=== PATIENT | female | born 1975 | race Caucasian/White ===

== ENCOUNTER 2016-10-18 09:12 | Emergency (ER) | payer OTHER ==
[2016-10-18 09:17] VITALS: BP 113/79; PULSE 64; TEMP 97.5; BMI 24.4
[2016-10-18] MEDS ORDERED: IBUPROFEN 400 MG TABLET (FP) PO ONE (10:18)
[2016-10-18] MEDS: IBUPROFEN 400 MG TABLET (FP) PO ONE (10:19)
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
== END 2016-10-18 11:20 | disposition home or self-care (01) ==
LOC: JERFT 09:12
DX: M79.641 Pain in right hand (principal); W22.09XA Striking against other stationary object, initial encounter; Y93.89 Activity, other specified; Y92.239 Unspecified place in hospital as the place of occurrence of the external cause; Y99.0 Civilian activity done for income or pay; K21.9 Gastro-esophageal reflux disease without esophagitis
CPT/HCPCS: 73130-TC-RT; 84703; 99281-25

== ENCOUNTER 2018-03-12 15:11 | Emergency (ER) | payer OTHER ==
[2018-03-12] MEDS ORDERED: DIPHTH,PERTUSS(ACELL),TET 0.5 ML DISP.SYRIN IM ONE (15:19)
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
[2018-03-12 15:24] VITALS: BP 129/66; PULSE 77; TEMP 98.4; BMI 26.4
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
== END 2018-03-12 15:56 | disposition home or self-care (01) ==
LOC: JERFT 15:11
PROC: 3E0234Z Introduction of Serum, Toxoid and Vaccine into Muscle, Percutaneous Approach (ICD-10-PCS; principal; 2018-03-12)
DX: S41.152A Open bite of left upper arm, initial encounter (principal); W50.3XXA Accidental bite by another person, initial encounter; Y93.F9 Activity, other caregiving; Y92.238 Other place in hospital as the place of occurrence of the external cause; Y99.0 Civilian activity done for income or pay; Z88.1 Allergy status to other antibiotic agents
CPT/HCPCS: 90715; 99281-25

== ENCOUNTER 2018-05-01 11:09 | Emergency (ER) | payer OTHER ==
[2018-05-01 11:18] VITALS: BP 102/56; PULSE 82; TEMP 98.2; BMI 24.7
--- NOTE | 2018-05-01 12:03 | PDOC ---
History of Present Illness - General Chief Complaint: Pain, Acute Stated Complaint: INJURY Time Seen by Provider: 05/01/18 11:41 - History of Present Illness Initial Comments: 05/01/18 12:03 Male without comorbidities presents for evaluation of lower back pain for the last 2 hours. 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 She does have a history of kidney stones and lower back pain she is unsure of what is going on at this point. Past History - Past Medical History Allergies/Adverse Reactions: Allergies Allergy/AdvReac Type Severity Reaction Status Date / Time levofloxacin [From Levaquin] Allergy Unknown Verified 05/01/18 11:12 Home Medications: Ambulatory Orders Cyclobenzaprine HCl [Flexeril 10 mg] 10 mg PO HS PRN #10 tablet 05/01/18 Methylprednisolone [Medrol Dose Robert] 4 mg PO ASDIR #21 tablet 05/01/18 Anemia: No Asthma: No Cancer: No Cardiac Disorders: No CVA: No COPD: No CHF: No Dementia: No Diabetes: No GI Disorders: Yes (gerd) Disorders: No HTN: No Hypercholesterolemia: No Liver Disease: No Seizures: No Thyroid Disease: No - Immunization History Td Vaccination: Yes TDAP Vaccination: No Immunization Up to Date: Yes - Suicide/Smoking/Psychosocial Hx Smoking Status: No Smoking History: Never smoked Years of Tobacco Use: 0 Have you smoked in the past 12 months: No Number of Cigarettes Smoked Daily: 0 Cigars Per Day: 0 Information on smoking cessation initiated: No Hx Alcohol Use: No Drug/Substance Use Hx: No Substance Use Type: None Review of Systems - Review of Systems Constitutional: No: Fever Musculoskeletal: Yes: Back Pain *Physical Exam - Vital Signs Last Vital Signs Temp Pulse Resp BP Pulse Ox 98.2 F 82 18 102/56 L 100 05/01/18 11:12 05/01/18 11:12 05/01/18 11:12 05/01/18 11:12 05/01/18 11:12 - Physical Exam Comments: 05/01/18 12:05 HEAD: NC/AT EYES: Conjuntiva clear Ears: Canals and TM's normal NOSE: No d/c THROAT: Moist mucous membrances, oral pharanx clear, uvula midline NECK: Supple without adenopathy CARDIAC: S1 S2 LUNGS: CTA Full and Equal breath sounds ABDOMEN: Soft NT ND No CVAT MS: Full ROM in all joints without edema NEUROLOGIC: No gross sensory or motor deficits, NVID SKIN: Normal color and temperature no lesions or rashes Lumbar spine skin color and temperature are normal. Range of motion is slightly limited in painful. There is mild right left paralumbar musculature spasm and tenderness. No CVA tenderness. 5 out of 5 strength in bilateral lower extremities without gross sensorimotor deficits negative straight leg raise test. She is neurovascularly intact. Medical Decision Making - Medical Decision Making Given the onset of symptoms over the last 2 hours and the sudden onset of pain is worse to do a CAT scan and evaluate for any obstructive stone. However could be musculoskeletal as well. She did take meloxicam as well as ibuprofen prior to her ER visit I will hold off on Toradol 05/01/18 12:06 *DC/Admit/Observation/Transfer Diagnosis at time of Disposition: Lumbar strain, Lumbar radiculopathy - Discharge Dispostion Disposition: HOME Decision to Admit order: No - Referrals Referrals: Ge Castro MD [Primary Care Provider] - Jimbo Freeman MD [Staff Physician] - - Patient Instructions Printed Discharge Instructions: Lumbar Radiculopathy, DI for Lumbar Radiculopathy Additional Instructions: Return to the emergency room should symptoms worsen or go unresolved. Please take the steroid pack as directed do not take Mobic or any other anti- inflammatory such as Advil Motrin Aleve or ibuprofen while on the Medrol Dosepak. The muscle relaxer I prescribed he will make you sleepy it's one tablet before bedtime. Please follow-up with spine surgery in 2-3 days for further evaluation and treatment options. - Post Discharge Activity
[2018-05-01] MEDS ORDERED: KETOROLAC TROMETHAMINE 60 MG/2 ML VIAL IM ONE (14:00)
[2018-05-01] MEDS ORDERED: KETOROLAC TROMETHAMINE 60 MG/2 ML VIAL ONE (14:04)
[2018-05-01 14:20] LABS: URINE APPEARANCE SLCLOUDY; URINE BILIRUBIN NEGATIVE (<2.0 mg/dL); URINE COLOR YELLOW; URINE GLUCOSE (UA) NEGATIVE (NEGATIVE); URINE KETONE NEGATIVE (NEGATIVE); URINE LEUK ESTERASE NEGATIVE (NEGATIVE); URINE NITRITE NEGATIVE (NEGATIVE); URINE PROTEIN NEGATIVE (NEGATIVE); URINE UROBILINOGEN NEGATIVE mg/dL (0.2-1.0)
== END 2018-05-01 14:40 | disposition home or self-care (01) ==
LOC: JERFT 11:09
PROC: 3E0233Z Introduction of Anti-inflammatory into Muscle, Percutaneous Approach (ICD-10-PCS; principal; 2018-05-01)
DX: S39.012A Strain of muscle, fascia and tendon of lower back, initial encounter (principal); X58.XXXA Exposure to other specified factors, initial encounter; Y93.89 Activity, other specified; Y92.89 Other specified places as the place of occurrence of the external cause; K21.9 Gastro-esophageal reflux disease without esophagitis
CPT/HCPCS: 74176-TC; 81003; 84703; 99281-25

== ENCOUNTER 2018-11-26 17:08 | Observation (INO) | payer OTHER ==
[2018-11-26] MEDS ORDERED: SODIUM CHLORIDE 1,000 ML IV STA (17:28)
[2018-11-26] MEDS ORDERED: ONDANSETRON 4 MG/2 ML VIAL IVPB ONE (17:41)
[2018-11-26] MEDS ORDERED: ACETAMINOPHEN 1000 MG/100 ML VIAL (NON FORMULARY) IVPB ONE (17:41)
[2018-11-26 17:45] LABS: BASO % 0.5 % (0-2.0); EOS % 0.7 % (0-4.5); HEMATOCRIT 35.2 % (32.4-45.2); HEMOGLOBIN 11.4 GM/dL (10.7-15.3); LYMPH % 40.8 % (8-40); MCH 29.7 pg (25.7-33.7); MCHC 32.5 g/dl (32.0-36.0); MEAN CELL VOLUME 91.5 fl (80-96); MEAN PLT VOLUME 9.5 fl (7.5-11.1); MONO % 7.1 % (3.8-10.2); NEUT % 50.9 % (42.8-82.8); PLATELET COUNT 229 K/MM3 (134-434); RBC 3.85 M/mm3 (3.60-5.2); WHITE BLOOD COUNT 11.7 K/mm3 (4.0-10.0)
[2018-11-26] MEDS ORDERED: ACETAMINOPHEN INJECTION 100 ML IVPB ONE (17:46)
[2018-11-26] MEDS ORDERED: ONDANSETRON 4 MG/2 ML VIAL ONE (17:47)
--- NOTE | 2018-11-26 17:47 | PDOC ---
Attending Attestation - Resident Resident Name: Toro Mccormick - ED Attending Attestation I have performed the following: I have examined & evaluated the patient, The case was reviewed & discussed with the resident, I agree w/resident's findings & plan, Exceptions are as noted
--- NOTE | 2018-11-26 17:58 | PDOC ---
Documentation entered by Jovana Richter SCRIBE, acting as scribe for Alexis Garcia MD. Alexis Garcia MD: This documentation has been prepared by the marthaibe, Jovana Richter SCRIBE, under my direction and personally reviewed by me in its entirety. I confirm that the documentation accurately reflects all work, treatment, procedures, and medical decision making performed by me. Attending Attestation - Resident Resident Name: Toro Mccormick - ED Attending Attestation I have performed the following: I have examined & evaluated the patient, The case was reviewed & discussed with the resident, I agree w/resident's findings & plan, Exceptions are as noted - HPI HPI: 11/26/18 17:51 43 F with no PMH presents to ED with syncopal episode. Pt was in wound clinic having ingrown toenail removed when she suddenly felt lightheaded and lost consciousness. Episode was witnessed by Dr. Martin. Pt states that she was seated during the entire episode. DId not hit her head or fall. Pt awoke shortly after but reports persistent nausea and lightheadedness. Pt denies CP/ SOB/palpitations. Denies recent illness, no abdominal pain/N/V/D. States that she has had syncopal episodes in the past. - Physicial Exam PE: 11/26/18 17:56 GENERAL: Awake, alert, and fully oriented, in no acute distress. HEAD: No signs of trauma EYES: PERRLA, EOMI, sclera anicteric, conjunctiva clear ENT: Auricles normal inspection, hearing grossly normal, nares patent, oropharynx clear without exudates. Moist mucosa NECK: Nontender, no stepoffs, Normal ROM, supple, no lymphadenopathy, JVD, or masses LUNGS: Breath sounds equal, clear to auscultation bilaterally. No wheezes, and no crackles HEART: Regular rate and rhythm, normal S1 and S2, no murmurs, rubs or gallops ABDOMEN: Soft, nontender, normoactive bowel sounds. No guarding, no rebound. No masses EXTREMITIES: Normal range of motion, no edema. No clubbing or cyanosis. No cords, erythema, or tenderness NEUROLOGICAL: Cranial nerves II through XII intact. 5/5 strength and sensation in all extremities, Normal speech, normal gait, normal cerebellar function SKIN: Warm, Dry, normal turgor, no rashes or lesions noted. - Medical Decision Making 11/26/18 17:56 43 F with syncopal episode. Suspect vasovagal. Pt with normal vitals in ED. No PE risk factors, PERC score 0. EKG without evidence of arrhythmia. - Labs, trop - UA, UPT - CXR - IVF, zofran, tylenol 11/26/18 18:48 Labs wnl other than Ca 7, K 3.3 EKG wnl Pt reassessed - continues to be very lethargic, more difficult to arouse Pt denies taking any medications, using any drugs Will obtain head CT and send tox panel at this time.
--- NOTE | 2018-11-26 18:11 | PDOC ---
History of Present Illness - General Chief Complaint: Syncope/Near Syncope Stated Complaint: SYNCOPE Time Seen by Provider: 11/26/18 17:11 - History of Present Illness Initial Comments: 11/26/18 17:56 43 yo F with no significant pmh who p/w lightheadedness. Patient was on 5th floor [facility] when she experienced sudden onset of RUE/RLE burning, lightheadedness at rest, and nausea without vomiting. States that she felt weak , and that she might "pass out." Reports similar presentation 15 years ago. States that she was having ingrown nail, removed as outpt. Completed procedure and felt onset of symptoms while sitting. Patient denies NEWMAN, vision change, palpitations, cough, wheezing, orthopena, PND , leg swelling/pain, F,C, CP, SOB, urinary complaints, hematuria, BPR, abdominal pain, diarrhea, constipation, sensory changes. PMHx: as noted above ROS: as noted SHx: Denies Etoh, IVDA, tobacco use Allergies: Levaquin Past History - Past Medical History Allergies/Adverse Reactions: Allergies Allergy/AdvReac Type Severity Reaction Status Date / Time levofloxacin [From Levaquin] Allergy Unknown Verified 11/26/18 17:14 Home Medications: Ambulatory Orders Calcium Carbonate [Calcium] 500 mg PO DAILY 11/19/18 Cholecalciferol (Vitamin D3) [Vitamin D -] 1 tab PO DAILY 11/19/18 Anemia: No Asthma: No Cancer: No Cardiac Disorders: No CVA: No COPD: No CHF: No Dementia: No Diabetes: No GI Disorders: Yes (gerd) Disorders: No HTN: No Hypercholesterolemia: No Liver Disease: No Seizures: No Thyroid Disease: No - Immunization History Td Vaccination: Yes TDAP Vaccination: No Immunization Up to Date: Yes - Suicide/Smoking/Psychosocial Hx Smoking Status: No Smoking History: Never smoked Years of Tobacco Use: 0 Have you smoked in the past 12 months: No Number of Cigarettes Smoked Daily: 0 Cigars Per Day: 0 Hx Alcohol Use: No Drug/Substance Use Hx: No Substance Use Type: None Review of Systems - Review of Systems Comments:: 11/26/18 18:12 GENERAL/CONSTITUTIONAL: No fever or chills. No weakness. HEAD, EYES, EARS, NOSE AND THROAT: No change in vision. No ear pain or discharge. No sore throat. CARDIOVASCULAR: No chest pain or shortness of breath RESPIRATORY: No cough, wheezing, or hemoptysis. GASTROINTESTINAL:+ nausea. No vomiting, diarrhea or constipation. GENITOURINARY: No dysuria, frequency, or change in urination. MUSCULOSKELETAL: No joint or muscle swelling or pain. No neck or back pain. SKIN: No rash NEUROLOGIC: + lightheadedness. No headache, vertigo, loss of consciousness, or change in strength. ENDOCRINE: No increased thirst. No abnormal weight change HEMATOLOGIC/LYMPHATIC: No anemia, easy bleeding, or history of blood clots. ALLERGIC/IMMUNOLOGIC: No hives or skin allergy. *Physical Exam - Vital Signs Last Vital Signs Temp Pulse Resp BP Pulse Ox 97.7 F 80 18 121/61 100 11/26/18 17:10 11/26/18 17:10 11/26/18 17:10 11/26/18 17:10 11/26/18 17:10 - Physical Exam Comments: 11/26/18 18:14 GENERAL: Awake, alert, and fully oriented, in no acute distress HEAD: No signs of trauma, normocephalic, atraumatic EYES: PERRLA, EOMI, sclera anicteric, conjunctiva clear ENT: Auricles normal inspection, hearing grossly normal, nares patent, oropharynx clear without exudates. Moist mucosa NECK: Normal ROM, supple, no lymphadenopathy, JVD, or masses LUNGS: No distress, speaks full sentences, clear to auscultation bilaterally HEART: Regular rate and rhythm, normal S1 and S2, no murmurs, rubs or gallops, peripheral pulses normal and equal bilaterally. ABDOMEN: Soft, nontender, normoactive bowel sounds. No guarding, no rebound. No masses EXTREMITIES : Normal inspection, Normal range of motion, no edema. No clubbing or cyanosis. NEUROLOGICAL: Cranial nerves II through XII grossly intact. Normal speech, no focal sensorimotor deficits SKIN: Warm, Dry, normal turgor, no rashes or lesions noted ED Treatment Course - LABORATORY CBC & Chemistry Diagram: 11/26/18 17:00 11/26/18 17:00 - ADDITIONAL ORDERS Additional order review: 11/26/18 17:00 RBC 3.85 MCV 91.5 MCHC 32.5 RDW 14.0 MPV 9.5 Neutrophils % 50.9 D Lymphocytes % 40.8 H D Monocytes % 7.1 Eosinophils % 0.7 Basophils % 0.5 - Medications Given in the ED: ED Medications Discontinued Medications Generic Name Dose Route Start Last Admin Trade Name Keesha PRN Reason Stop Dose Admin Acetaminophen 1,000 mg 11/26/18 17:41 11/26/18 17:52 Ofirmev Injection - IVPB 11/26/18 17:42 1,000 mg ONCE ONE Administration Ondansetron HCl 4 mg 11/26/18 17:41 11/26/18 17:52 Zofran Injection IVPB 11/26/18 17:42 4 mg ONCE ONE Administration Medical Decision Making - Medical Decision Making 11/26/18 18:11 43 yo F with no significant pmh who p/w lightheadedness, nausea, following ingrown tail removal in [facility] ED. Vitals wnl, AF, A&Ox3. Patient initially pale appearing, lethargic appearing, but mental status improved, following NS, and oxygen. Physical exam otherwise unremarkable. Likely vasovagal syncope. Will assess for cardiac dysarrythmias, hypoglycemia, electrolyte abnml, metabolic and toxic derangements, acid-base disturbances, infection. Will reassess. ED course: 11/26/18 18:16 Laboratory Tests 11/26/18 11/26/18 17:00 17:00 WBC 11.7 H Hgb 11.4 Hct 35.2 D Plt Count 229 Potassium 3.3 L 11/26/18 18:25 EKG: NSR with absent MERLINE, STD. Nml interval duration and axis. Nml R wave progression. Absent Q waves. 11/26/18 18:50 CXR: Unremarkable Patient pending CTH Endorsed to night team, Dr. Nur. *DC/Admit/Observation/Transfer Diagnosis at time of Disposition: Pre-syncope - Discharge Dispostion Condition at time of disposition: Stable - Referrals Referrals: Ge Castro MD [Primary Care Provider] - - Patient Instructions Printed Discharge Instructions: DI for Syncope in Adults (Fainting) Additional Instructions: Please return to the emergency department with any new or worsening symptoms or concerns. Please follow up with your primary care physician within 72 hours. - Post Discharge Activity
[2018-11-26 18:15] LABS: ALBUMIN 3.5 g/dl (3.4-5.0); ALK PHOS 68 U/L (45-117); ANION GAP 7 MMOL/L (8-16); BILIRUBIN,TOTAL 0.6 mg/dL (0.2-1); BLOOD UREA NITROGEN 10.5 mg/dL (7-18); CALCIUM 7.7 mg/dL (8.5-10.1); CHLORIDE 110 mmol/L (98-107); CO2 21 mmol/L (21-32); CREATININE 0.6 mg/dL (0.55-1.3); GLUCOSE,RANDOM 107 mg/dL (74-106); POTASSIUM 3.3 mmol/L (3.5-5.1); SGOT/AST 16 U/L (15-37); SGPT/ALT 21 U/L (13-61); SODIUM 138 mmol/L (136-145); TOT PROT 6.4 g/dl (6.4-8.2)
[2018-11-26] MEDS ORDERED: POTASSIUM CHLORIDE TABS 20 MEQ TABLET.ER (FP) PO ONE ×4 (18:15→19:28)
[2018-11-26] MEDS ORDERED: CALCIUM GLUCONATE 10% - 1,000 MG/10 ML VIAL IVPB ONE (18:59)
--- NOTE | 2018-11-26 19:10 | PDOC ---
*Physical Exam - Vital Signs Last Vital Signs Temp Pulse Resp BP Pulse Ox 98.0 F 71 18 123/78 97 11/26/18 18:40 11/26/18 18:40 11/26/18 18:40 11/26/18 18:40 11/26/18 18:40 ED Treatment Course - LABORATORY CBC & Chemistry Diagram: 11/28/18 07:35 11/28/18 07:35 - ADDITIONAL ORDERS Additional order review: Laboratory Results 11/26/18 17:00 Sodium 138 Potassium 3.3 L Chloride 110 H Carbon Dioxide 21 Anion Gap 7 L BUN 10.5 Creatinine 0.6 Est GFR (CKD-EPI)AfAm 127.58 Est GFR (CKD-EPI)NonAf 110.08 Random Glucose 107 H Calcium 7.7 L Total Bilirubin 0.6 AST 16 ALT 21 Alkaline Phosphatase 68 Troponin I < 0.02 Total Protein 6.4 Albumin 3.5 TSH 0.75 11/26/18 17:00 RBC 3.85 MCV 91.5 MCHC 32.5 RDW 14.0 MPV 9.5 Neutrophils % 50.9 D Lymphocytes % 40.8 H D Monocytes % 7.1 Eosinophils % 0.7 Basophils % 0.5 - Medications Given in the ED: ED Medications Discontinued Medications Generic Name Dose Route Start Last Admin Trade Name Freq PRN Reason Stop Dose Admin Acetaminophen 1,000 mg 11/26/18 17:41 11/26/18 17:52 Ofirmev Injection - IVPB 11/26/18 17:42 1,000 mg ONCE ONE Administration Sodium Chloride 1,000 mls @ 1,000 mls/hr 11/26/18 17:28 11/26/18 17:29 Normal Saline - IV 11/26/18 18:27 1,000 mls/hr ASDIR STA Administration Ondansetron HCl 4 mg 11/26/18 17:41 11/26/18 17:52 Zofran Injection IVPB 11/26/18 17:42 4 mg ONCE ONE Administration Potassium Chloride 40 meq 11/26/18 18:15 11/26/18 18:36 K-Dur - PO 11/26/18 18:16 40 meq ONCE ONE Administration Medical Decision Making - Medical Decision Making 11/26/18 19:09 Patient signed out by Dr. Mccormick (Resident) and Dr. Garcia (Attending) @ [id number] 43 year old female s/p pre-syncopal event while having an ingrown toenail removed on the 5th floor. CBC unremarkable, Hypokalemic (s/p PO replacement) EKG non-ichemic Awaiting Head CT 11/26/18 19:10 Patient reassessed @ bedside VSS Drowsy, but arousable C/o of tiredness, no other active medical complaints including no chest pain, shortness of breath, headache 11/26/18 20:[address] shows no mass/bleed/ischemia 11/26/18 20:18 Patient reassessed @ bedside, remains drowsy but arousable. Family @ bedside notes this is not her baseline. At this time I have concern that patient may have repeat pre-syncopal, even syncopal episode if discharged home. Will admit for further observation and any necessary cardiac evaluation. 11/26/18 21:14 Case d/w SHANK TAPER Beverley Rodriguez - will admit OBS Tele Patient and family @ bedside counseled on plan of care *DC/Admit/Observation/Transfer Diagnosis at time of Disposition: Pre-syncope - Discharge Dispostion Disposition: HOME Condition at time of disposition: Improved - Referrals - Patient Instructions - Post Discharge Activity
[2018-11-26] MEDS ORDERED: CALCIUM GLUCONATE 10% - 1,000 MG/10 ML VIAL ONE (19:28)
--- NOTE | 2018-11-26 21:42 | HP ---
Admitting History and Physical - Primary Care Physician PCP: Ge Castro - Admission Chief Complaint: Lightheadedness and Numbness History of Present Illness: This is a 43 y/o woman with a past medical history GERD. Who presents to the ED for lightheadedness and numbness/burning to L- leg to abdomen after having an ingrown nail procedure today. Patient reports fasting for 8 hrs secondary to podiatry procedure. Patient reports increased dizziness with movement. Patient reports being admitted and worked up for Vertigo and Seizure- Like Activity- neg. Patient denies blurred vision, NEWMAN. Patient denies fever, chills, cough, SOB , CP, palpitations, vomiting, diarrhea, constipation, dysuria. History Source: Patient Limitations to Obtaining History: No Limitations - Past Medical History Gastrointestinal: Yes: GERD, Peptic Ulcer Disease ...LMP: 07/18/13 - Past Surgical History Additional Past Surgical History: Cyst removed from L- Breast - Smoking History Smoking history: Never smoked Have you smoked in the past 12 months: No Aproximately how many cigarettes per day: 0 - Alcohol/Substance Use Hx Alcohol Use: No - Social History History of Recent Travel: No Home Medications - Allergies Allergies/Adverse Reactions: Allergies Allergy/AdvReac Type Severity Reaction Status Date / Time levofloxacin [From Levaquin] Allergy Unknown Verified 11/26/18 17:14 - Home Medications Home Medications: Ambulatory Orders Calcium Carbonate [Calcium] 500 mg PO DAILY 11/19/18 Cholecalciferol (Vitamin D3) [Vitamin D -] 1 tab PO DAILY 11/19/18 Family Disease History - Family Disease History Family Disease History: CA: Father (liver ca 60) Review of Systems - Review of Systems Constitutional: reports: No Symptoms Eyes: reports: No Symptoms HENT: reports: No Symptoms Neck: reports: No Symptoms Cardiovascular: reports: No Symptoms Respiratory: reports: No Symptoms Gastrointestinal: reports: No Symptoms Genitourinary: reports: No Symptoms Breasts: reports: No Symptoms Reported Musculoskeletal: reports: No Symptoms Integumentary: reports: No Symptoms Neurological: reports: Dizziness, Numbness Endocrine: reports: No Symptoms Hematology/Lymphatic: reports: No Symptoms Psychiatric: reports: No Symptoms Physical Examination Vital Signs: Vital Signs Temperature 98.0 F 11/26/18 18:40 Pulse Rate 71 11/26/18 18:40 Respiratory Rate 18 11/26/18 18:40 Blood Pressure 123/78 11/26/18 18:40 O2 Sat by Pulse Oximetry (%) 97 11/26/18 18:40 Constitutional: Yes: Well Nourished, No Distress, Calm, Pallor Eyes: Yes: WNL, Conjunctiva Clear, EOM Intact, PERRL HENT: Yes: WNL, Atraumatic, Normocephalic Neck: Yes: WNL, Supple, Trachea Midline Cardiovascular: Yes: WNL, Regular Rate and Rhythm, S1, S2 Respiratory: Yes: WNL, Regular, CTA Bilaterally Gastrointestinal: Yes: WNL, Normal Bowel Sounds, Soft Breast(s): Yes: WNL Musculoskeletal: Yes: WNL Extremities: Yes: WNL Edema: No Peripheral Pulses WNL: Yes Wound/Incision: Yes: Dressing Dry and Intact Neurological: Yes: WNL, Alert, Oriented, Cran Nerves II-XII Intact ...Motor Strength: WNL Psychiatric: Yes: WNL, Alert, Oriented Labs: CBC, BMP 11/26/18 17:00 11/26/18 17:00 Laboratory Results - last 24 hr 11/26/18 11/26/18 17:00 17:00 WBC 11.7 H RBC 3.85 Hgb 11.4 Hct 35.2 D MCV 91.5 MCH 29.7 MCHC 32.5 RDW 14.0 Plt Count 229 MPV 9.5 Absolute Neuts (auto) 6.0 Neutrophils % 50.9 D Lymphocytes % 40.8 H D Monocytes % 7.1 Eosinophils % 0.7 Basophils % 0.5 Nucleated RBC % 0 Sodium 138 Potassium 3.3 L Chloride 110 H Carbon Dioxide 21 Anion Gap 7 L BUN 10.5 Creatinine 0.6 Est GFR (CKD-EPI)AfAm 127.58 Est GFR (CKD-EPI)NonAf 110.08 Random Glucose 107 H Calcium 7.7 L Total Bilirubin 0.6 AST 16 ALT 21 Alkaline Phosphatase 68 Troponin I < 0.02 Total Protein 6.4 Albumin 3.5 TSH 0.75 Intake & Output 11/23/18 11/24/18 11/25/18 11/26/18 23:59 23:59 23:59 23:59 Weight 68.039 kg Imaging - Results Chest X-ray: Report Reviewed, Image Reviewed Cat Scan: Report Reviewed, Image Reviewed EKG: Image Reviewed Problem List - Problems (1) Pre-syncope Assessment/Plan: Likely secondary to Dehydration vs Arrhythmia Cardiac monitoring Serial Enzymes Appreciate Cardiology consult ECHO in am Carotid Doppler r/o stenosis Holter 2012 for Vertigo- neg EEG 2013 for Seizure like activity- no recorded seizures Brain MRI 2012 for NEWMAN and Dizziness- no acute intracranial pathology Orthostatics Monitor CBC, BMP Fall Precautions Code(s): R55 - SYNCOPE AND COLLAPSE (2) Lightheaded Assessment/Plan: See above Code(s): R42 - DIZZINESS AND GIDDINESS (3) Hypocalcemia Assessment/Plan: Continue Calcium Code(s): E83.51 - HYPOCALCEMIA (4) GERD (gastroesophageal reflux disease) Assessment/Plan: Stable Pepcid Code(s): K21.9 - GASTRO-ESOPHAGEAL REFLUX DISEASE WITHOUT ESOPHAGITIS Assessment/Plan This is a 43 y/o woman with a PMHx of GERD. Placed in Telemetry Observation for Near Syncope for further evaluation of their emergent condition. Plan: See Problem List FEN PO Fluids as Tolerated Replete lytes prn Regular Diet DVT ppx OOB SCDs Dispo: Observation Visit type - Emergency Visit Emergency Visit: Yes ED Registration Date: 11/26/18 Care time: The patient presented to the Emergency Department on the above date and was hospitalized for further evaluation of their emergent condition. - New Patient This patient is new to me today: Yes Date on this admission: 11/26/18 - Critical Care Critical Care patient: No
[2018-11-26 22:54] LABS: URINE APPEARANCE CLEAR; URINE BILIRUBIN NEGATIVE (NEGATIVE); URINE COLOR YELLOW; URINE GLUCOSE (UA) NEGATIVE (NEGATIVE); URINE KETONE NEGATIVE (NEGATIVE); URINE LEUK ESTERASE NEGATIVE (NEGATIVE); URINE NITRITE NEGATIVE (NEGATIVE); URINE PROTEIN NEGATIVE (NEGATIVE); URINE UROBILINOGEN 0.2 mg/dL (0.2-1.0)
[2018-11-26 23:13] LABS: METHADONE, UR NEGATIVE ng/ml (CUTOFF=300); PHENCYCLIDINE,URINE NEGATIVE ng/ml (CUTOFF=25); URINE BARBITURATES NEGATIVE ng/ml (CUTOFF=200); URINE BENZODIAZEPINES NEGATIVE ng/ml (CUTOFF=200)
[2018-11-26 23:14] LABS: COCAINE, UR NEGATIVE ng/ml (CUTOFF=300); OPIATES, URI NEGATIVE ng/ml (CUTOFF=300); URINE AMPHETAMINES NEGATIVE ng/ml (CUTOFF=500)
[2018-11-27] MEDS ORDERED: FAMOTIDINE 20 MG/50 ML IVPB 20 MG/50 ML MG IVPB ONE ×2 (01:24→01:41)
[2018-11-27] MEDS ORDERED: ACETAMINOPHEN 325 MG TABLET (FP) ONE (01:40)
[2018-11-27] MEDS: ACETAMINOPHEN 325 MG TABLET (FP) PO PRN ×3 (01:45→22:13)
[2018-11-27 04:39] VITALS: BMI 27.8
--- NOTE | 2018-11-27 08:51 | EKG ---
Test Reason : Blood Pressure : / mmHG Vent. Rate : 069 BPM Atrial Rate : 069 BPM P-R Int : 154 ms QRS Dur : 086 ms QT Int : 416 ms P-R-T Axes : 061 073 029 degrees QTc Int : 445 ms NORMAL SINUS RHYTHM NORMAL ECG WHEN COMPARED WITH ECG OF 01-AUG-2014 11:02, NO SIGNIFICANT CHANGE WAS FOUND Confirmed by ELVIRA KC MD ([id number]) on 11/27/2018 8:50:42 AM Referred By: Confirmed By:ELVIRA KC MD
[2018-11-27] MEDS: CALCIUM (OYSTER SHELL) 500 MG TABLET (FP) PO SCH (10:28)
[2018-11-27] MEDS: CHOLECALCIFEROL (VIT D3) 400 UNIT (10 MCG) TABLET PO SCH (10:28)
[2018-11-27 10:56] LABS: BASO % 0.3 % (0-2.0); EOS % 0.2 % (0-4.5); HEMATOCRIT 37.1 % (32.4-45.2); HEMOGLOBIN 12.1 GM/dL (10.7-15.3); LYMPH % 23.1 % (8-40); MCH 29.2 pg (25.7-33.7); MCHC 32.6 g/dl (32.0-36.0); MEAN CELL VOLUME 89.6 fl (80-96); MEAN PLT VOLUME 9.4 fl (7.5-11.1); MONO % 6.6 % (3.8-10.2); NEUT % 69.8 % (42.8-82.8); PLATELET COUNT 227 K/MM3 (134-434); RBC 4.14 M/mm3 (3.60-5.2); RDW 14.1 % (11.6-15.6); WHITE BLOOD COUNT 8.2 K/mm3 (4.0-10.0)
[2018-11-27 11:35] LABS: ANION GAP 6 MMOL/L (8-16); BLOOD UREA NITROGEN 10.2 mg/dL (7-18); CALCIUM 8.5 mg/dL (8.5-10.1); CHLORIDE 112 mmol/L (98-107); CO2 24 mmol/L (21-32); CREATININE 0.7 mg/dL (0.55-1.3); GLUCOSE,RANDOM 105 mg/dL (74-106); MAGNESIUM 2.3 mg/dL (1.8-2.4); POTASSIUM 3.8 mmol/L (3.5-5.1); SODIUM 142 mmol/L (136-145)
[2018-11-27] MEDS: SODIUM CHLORIDE 1,000 ML IV SCH (14:13)
--- NOTE | 2018-11-27 14:36 | ECHO ---
Name: DOLLY PASCUAL Exam:Adult Echocardiogram Study Date: 11/27/2018 09:11 AM Age: 43 yrs Reason For Study: SYNCOPE Height: 62 in Weight: 150 lb BSA: 1.7 m2 MMode/2D Measurements & Calculations IVSd: 0.58 cm Ao root diam: 2.1 cm LVIDd: 4.4 cm LA dimension: 3.2 cm LVIDs: 2.9 cm LVPWd: 0.49 cm EDV(Teich): 88.2 ml LVOT diam: 1.9 cm ESV(Teich): 31.0 ml Doppler Measurements & Calculations MV E max reilly: 94.3 cm/sec Ao V2 max: 169.9 cm/sec MV A max reilly: 63.2 cm/sec Ao max P.5 mmHg MV E/A: 1.5 Ao V2 mean: 116.7 cm/sec MV dec time: 0.21 sec Ao mean P.2 mmHg Ao V2 VTI: 34.1 cm DELVIS(I,D): 1.7 cm2 DELVIS(V,D): 1.6 cm2 LV V1 max P.9 mmHg SV(LVOT): 57.8 ml LV V1 mean P.1 mmHg LV V1 max: 98.7 cm/sec LV V1 mean: 67.4 cm/sec LV V1 VTI: 21.1 cm TR max reilly: 198.2 cm/sec Med Peak E' Reilly: 13.4 cm/sec TR max P.7 mmHg Med E/e': 7.0 Lat Peak E' Reilly: 13.4 cm/sec Lat E/e': 7.0 Procedure A two-dimensional transthoracic echocardiogram with color flow and Doppler was performed. Left Ventricle The left ventricular size, thickness and function are normal. The left ventricular ejection fraction is normal. Left Ventricular Filling pattern is normal for age. The left ventricular wall motion is kenzie l. Right Ventricle The right ventricle is normal in size and function. Atria Normal left and right atrial size and function. The atrial septum is aneurysmal. Mitral Valve The mitral valve is grossly normal. There is no mitral valve stenosis. There is trace mitral regurgit ation. Tricuspid Valve The tricuspid valve is normal in structure and function. There is no tricuspid stenosis. There is Tra ce to mild tricuspid regurgitation. Right ventricular systolic pressure is normal. Aortic Valve The aortic valve is not well visualized. No hemodynamically significant valvular aortic stenosis. No aortic regurgitation is present. Pulmonic Valve The pulmonic valve is not well visualized. Great Vessels The aortic root is normal size. Pericardium/Pleura There is no pericardial effusion. Interpretation Summary The left ventricular size, thickness and function are normal The left ventricular ejection fraction is normal. The left ventricular wall motion is normal. Left Ventricular Filling pattern is normal for age. There is trace mitral regurgitation. There is Trace to mild tricuspid regurgitation. Right ventricular systolic pressure is normal. The atrial septum is aneurysmal. MD Jacky Murphy 11/27/2018 02:36 PM
--- NOTE | 2018-11-27 15:36 | PN ---
Progress Note, Physician Chief Complaint: Pre-syncope Palpitations Hypocalcemia History of Present Illness: Previous notes and events reviewed awake and alert NAD continue to have ightheadedness denies chest pain or SOB - Current Medication List Current Medications: Active Medications Acetaminophen (Tylenol -) 650 mg PO Q6H PRN PRN Reason: PAIN LEVEL 6-10 Last Admin: 11/27/18 10:28 Dose: 650 mg Calcium Carbonate (Os-Lakhwinder 500mg -) 500 mg PO DAILY [facility] Last Admin: 11/27/18 10:28 Dose: 500 mg Cholecalciferol (Vitamin D3 -) 400 unit PO DAILY [facility] Last Admin: 11/27/18 10:28 Dose: 400 unit Sodium Chloride (Normal Saline -) 1,000 mls @ 75 mls/hr IV ASDIR [facility] Last Admin: 11/27/18 14:13 Dose: 75 mls/hr Famotidine/Sodium Chloride (Pepcid 20 Mg Premixed Ivpb -) 20 mg in 50 mls @ 100 mls/hr IVPB BID [facility] - Objective Vital Signs: Vital Signs Temperature 98.4 F 11/27/18 13:00 Pulse Rate 78 11/27/18 13:00 Respiratory Rate 18 11/27/18 13:00 Blood Pressure 104/63 11/27/18 13:00 O2 Sat by Pulse Oximetry (%) 98 11/27/18 09:00 Constitutional: Yes: No Distress, Calm Eyes: Yes: Conjunctiva Clear HENT: Yes: Atraumatic Cardiovascular: Yes: Regular Rate and Rhythm Respiratory: Yes: Regular, CTA Bilaterally Gastrointestinal: Yes: Normal Bowel Sounds, Soft Musculoskeletal: Yes: Muscle Weakness Extremities: Yes: WNL Edema: No Wound/Incision: Yes: Dressing Dry and Intact Neurological: Yes: Alert, Oriented Psychiatric: Yes: Alert, Oriented Labs: CBC, BMP 11/27/18 10:25 11/27/18 10:25 Problem List - Problems (1) GERD (gastroesophageal reflux disease) Assessment/Plan: -Famotidine Code(s): K21.9 - GASTRO-ESOPHAGEAL REFLUX DISEASE WITHOUT ESOPHAGITIS (2) Palpitations Assessment/Plan: -tele monitoring -cardiology consult -Echo with normal EF Code(s): R00.2 - PALPITATIONS (3) Pre-syncope Assessment/Plan: -Cardiology on board -Carotid US done -tele monitoring -Orthostatics -IV hydration -fall precaution Code(s): R55 - SYNCOPE AND COLLAPSE (4) Hypocalcemia Assessment/Plan: -Calcium daily Code(s): E83.51 - HYPOCALCEMIA (5) Lightheaded Assessment/Plan: -Cardiology on board -Carotid US done -tele monitoring -Orthostatics -IV hydration -fall precaution Code(s): R42 - DIZZINESS AND GIDDINESS
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
[2018-11-27] MEDS: FAMOTIDINE 20 MG/50 ML IVPB 20 MG/50 ML MG IVPB SCH ×2 (22:14→22:16)
[2018-11-28] MEDS: ACETAMINOPHEN 325 MG TABLET (FP) PO PRN (08:25)
[2018-11-28 08:54] LABS: HEMATOCRIT 37.7 % (32.4-45.2); HEMOGLOBIN 12.7 GM/dL (10.7-15.3); MCH 29.9 pg (25.7-33.7); MCHC 33.7 g/dl (32.0-36.0); MEAN CELL VOLUME 88.7 fl (80-96); MEAN PLT VOLUME 9.8 fl (7.5-11.1); RBC 4.25 M/mm3 (3.60-5.2); RDW 14.7 % (11.6-15.6); WHITE BLOOD COUNT 6.8 K/mm3 (4.0-10.0)
[2018-11-28 08:55] LABS: ALBUMIN 3.6 g/dl (3.4-5.0); BILIRUBIN,TOTAL 0.5 mg/dL (0.2-1); BLOOD UREA NITROGEN 10.2 mg/dL (7-18); CALCIUM 8.7 mg/dL (8.5-10.1); CREATININE 0.6 mg/dL (0.55-1.3); POTASSIUM 4.5 mmol/L (3.5-5.1); TOT PROT 6.9 g/dl (6.4-8.2)
[2018-11-28 09:06] LABS: PLATELET COUNT 241 K/MM3 (134-434)
[2018-11-28] MEDS: SODIUM CHLORIDE 1,000 ML IV SCH (09:45)
[2018-11-28] MEDS: CALCIUM (OYSTER SHELL) 500 MG TABLET (FP) PO SCH (09:45)
[2018-11-28] MEDS: CHOLECALCIFEROL (VIT D3) 400 UNIT (10 MCG) TABLET PO SCH (09:45)
[2018-11-28] MEDS: FAMOTIDINE 20 MG/50 ML IVPB 20 MG/50 ML MG IVPB SCH (09:45)
--- NOTE | 2018-11-28 10:51 | PN ---
Progress Note, Physician Chief Complaint: Pt A&OX3; anxious. - Current Medication List Current Medications: Active Medications Acetaminophen (Tylenol -) 650 mg PO Q6H PRN PRN Reason: PAIN LEVEL 6-10 Last Admin: 11/28/18 08:25 Dose: 650 mg Calcium Carbonate (Os-Lakhwinder 500mg -) 500 mg PO DAILY [facility] Last Admin: 11/28/18 09:45 Dose: 500 mg Cholecalciferol (Vitamin D3 -) 400 unit PO DAILY [facility] Last Admin: 11/28/18 09:45 Dose: 400 unit Sodium Chloride (Normal Saline -) 1,000 mls @ 75 mls/hr IV ASDIR [facility] Last Admin: 11/28/18 09:45 Dose: Not Given Famotidine/Sodium Chloride (Pepcid 20 Mg Premixed Ivpb -) 20 mg in 50 mls @ 100 mls/hr IVPB BID [facility] Last Admin: 11/28/18 09:45 Dose: 100 mls/hr - Objective Vital Signs: Vital Signs Temperature 98.2 F 11/28/18 10:00 Pulse Rate 79 11/28/18 10:00 Respiratory Rate 20 11/28/18 10:00 Blood Pressure 103/61 11/28/18 10:00 O2 Sat by Pulse Oximetry (%) 100 11/28/18 09:00 Labs: CBC, BMP 11/28/18 07:35 11/28/18 07:35 Problem List - Problems (1) Syncope Assessment/Plan: Likely vagal from burning pain extending from site of toe surgery to the abdominal area (EKG, telemetry, and ECHO WNL; TNI < 0.02;) Atypical chest pain (tender sternal area and around left breast: likely from probe-pressure when doing ECHO). No hx HTN, DM, lipiss; no famiily hx CAD; no cigarettes; normal menses. Physically active job; no hx exertional chest discomfort or COONEY. From a cardiac standpoint, pt may be followed as outpatient. Code(s): R55 - SYNCOPE AND COLLAPSE (2) Anxiety Code(s): F41.9 - ANXIETY DISORDER, UNSPECIFIED (3) GERD (gastroesophageal reflux disease) Code(s): K21.9 - GASTRO-ESOPHAGEAL REFLUX DISEASE WITHOUT ESOPHAGITIS
--- NOTE | 2018-11-28 14:01 | EKG ---
Test Reason : Blood Pressure : / mmHG Vent. Rate : 072 BPM Atrial Rate : 072 BPM P-R Int : 130 ms QRS Dur : 078 ms QT Int : 370 ms P-R-T Axes : 016 042 023 degrees QTc Int : 405 ms NORMAL SINUS RHYTHM NORMAL ECG WHEN COMPARED WITH ECG OF 26-NOV-2018 17:22, NO SIGNIFICANT CHANGE WAS FOUND Confirmed by NASIR SPARKS MD ([id number]) on 11/28/2018 2:01:04 PM Referred By: WILTON WONG DRANABELL Confirmed By:NASIR SPARKS MD
--- NOTE | 2018-11-28 15:06 | DS ---
Physical Examination Vital Signs: Vital Signs Temperature 98.2 F 11/28/18 10:00 Pulse Rate 79 11/28/18 10:00 Respiratory Rate 20 11/28/18 10:00 Blood Pressure 103/61 11/28/18 10:00 O2 Sat by Pulse Oximetry (%) 100 11/28/18 09:00 Constitutional: Yes: Calm Cardiovascular: Yes: Regular Rate and Rhythm, S1, S2 Respiratory: Yes: CTA Bilaterally Gastrointestinal: Yes: Normal Bowel Sounds, Soft Extremities: Yes: Other (left great toe swelling dressin opened) Labs: CBC, BMP 11/28/18 07:35 11/28/18 07:35 Discharge Summary Reason For Visit: LIGHTHEADNESS/PRE-SYNCOPE Current Active Problems Anxiety (Acute) GERD (gastroesophageal reflux disease) (Acute) Hypocalcemia (Acute) Palpitations (Acute) Pre-syncope (Acute) Syncope (Acute) Other Procedures: echo left and right ventricle ejection fraction normal. carotid doppler normal Hospital Course: Primary Care Physician PCP: Ge Castro - Admission Chief Complaint: Lightheadedness and Numbness History of Present Illness: This is a 43 y/o woman with a past medical history GERD. Who presents to the ED for lightheadedness and numbness/burning to L- leg to abdomen after having an ingrown nail procedure today. Patient reports fasting for 8 hrs secondary to podiatry procedure. Patient reports increased dizziness with movement. Patient reports being admitted and worked up for Vertigo and Seizure- Like Activity- neg. Patient denies blurred vision, NEWMAN. Patient denies fever, chills, cough, SOB , CP, palpitations, vomiting, diarrhea, constipation, dysuria. Condition: Improved - Instructions Diet, Activity, Other Instructions: follow up with Dr alejandra kessler in 1 week at [facility] care center Referrals: Tavon Martin MD [Staff Physician] - Ge Castro MD [Primary Care Provider] - 1 Week Disposition: HOME - Home Medications Comprehensive Discharge Medication List: Ambulatory Orders Calcium Carbonate [Calcium] 500 mg PO DAILY 11/19/18 Cholecalciferol (Vitamin D3) [Vitamin D -] 1 tab PO DAILY 11/19/18
--- NOTE | 2018-11-28 15:07 | PN ---
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
[2018-11-28 15:30] VITALS: BP 158/96; PULSE 141; TEMP 98.5
== END 2018-11-28 18:20 | disposition home or self-care (01) ==
LOC: JER 17:08 → JERBED 21:02 → INTOOBSV 21:02 → J4W 11-27 03:44
PROVIDERS: ADMIT Family Medicine; ATTEND Family Medicine
PROC: 3E033NZ Introduction of Analgesics, Hypnotics, Sedatives into Peripheral Vein, Percutaneous Approach (ICD-10-PCS; principal; 2018-11-26)
PROC: 3E033GC Introduction of Other Therapeutic Substance into Peripheral Vein, Percutaneous Approach (ICD-10-PCS; 2018-11-26)
PROC: 3E0337Z Introduction of Electrolytic and Water Balance Substance into Peripheral Vein, Percutaneous Approach (ICD-10-PCS; 2018-11-26)
DX: R55 Syncope and collapse (principal); R42 Dizziness and giddiness; R00.2 Palpitations; E83.51 Hypocalcemia; K21.9 Gastro-esophageal reflux disease without esophagitis; Z88.1 Allergy status to other antibiotic agents; F41.9 Anxiety disorder, unspecified
CPT/HCPCS: 11730; 36415; 70450-TC; 71045-TC-FY; 80048; 80053; 80061; 80307; 81003; 82962; 83721; 83735; 84100; 84443; 84484; 84703; 85025; 85027; 87086; 93005; 93010; 93306-TC; 93880-TC; 99285-25; G0378; G0463-25; J0131; J7030

== ENCOUNTER 2020-05-04 11:49 | Emergency (ER) | payer OTHER ==
[2020-05-04 12:11] VITALS: BP 107/65; PULSE 85; TEMP 98.6; BMI 25.6
== END 2020-05-04 12:48 | disposition home or self-care (01) ==
LOC: JERFT 11:49
DX: S49.91XA Unspecified injury of right shoulder and upper arm, initial encounter (principal); S39.92XA Unspecified injury of lower back, initial encounter
CPT/HCPCS: 99283-25

== ENCOUNTER 2020-05-22 10:19 | Emergency (ER) | payer OTHER ==
[2020-05-22 10:52] VITALS: BP 116/77; PULSE 86; TEMP 98; BMI 26.5
[2020-05-22] MEDS ORDERED: ACETAMINOPHEN 500 MG TABLET (FP) PO ONE (11:21)
[2020-05-22] MEDS ORDERED: ACETAMINOPHEN 325 MG TABLET (FP) ONE (11:49)
== END 2020-05-22 12:43 | disposition home or self-care (01) ==
LOC: JER 10:19
DX: M25.552 Pain in left hip (principal)
CPT/HCPCS: 73523-TC-FY; 99284-25

== ENCOUNTER 2021-02-18 15:25 | Emergency (ER) | payer OTHER ==
[2021-02-18 15:33] VITALS: BP 120/81; PULSE 76; TEMP 97.5; BMI 27.1
[2021-02-18 18:14] LABS: BILIRUBIN,DIRECT 0.2 mg/dL (0.0-0.2)
[2021-02-18 18:16] LABS: BILIRUBIN,TOTAL 0.7 mg/dL (0.2-1)
[2021-02-18 18:17] LABS: TOT PROT 7.5 g/dl (6.4-8.2)
[2021-02-18 18:40] LABS: SYPHILIS W/ RPR CONF NON-REACTIVE (NONREACTIVE)
[2021-02-18 19:09] LABS: HIV INTERPRETATION NEGATIVE (NEGATIVE)
== END 2021-02-18 17:43 | disposition home or self-care (01) ==
LOC: JERFT 15:25
DX: S61.431A Puncture wound without foreign body of right hand, initial encounter (principal); W46.1XXA Contact with contaminated hypodermic needle, initial encounter; Y92.89 Other specified places as the place of occurrence of the external cause
CPT/HCPCS: 36415; 80076; 86705; 86706; 86707; 86708; 86780; 86803; 87340; 87389; 87517; 87522; 99283-25

== ENCOUNTER 2021-08-09 12:56 | Emergency (ER) | payer OTHER ==
[2021-08-09 13:22] VITALS: BP 137/77; PULSE 97; TEMP 98.7; BMI 30.8
[2021-08-09] MEDS ORDERED: IBUPROFEN 400 MG TABLET (FP) PO ONE ×2 (13:41→13:58)
[2021-08-09] MEDS ORDERED: diazePAM 5 MG TABLET PO ONE (13:42)
[2021-08-09] MEDS ORDERED: diazePAM 5 MG TABLET ONE (13:58)
== END 2021-08-09 15:36 | disposition home or self-care (01) ==
LOC: JERFT 12:56 → JER 12:56 → JERFT 15:36
DX: M54.42 Lumbago with sciatica, left side (principal); M54.6 Pain in thoracic spine; M54.2 Cervicalgia; Y93.F2 Activity, caregiving, lifting
CPT/HCPCS: 72050-TC-FY; 72070-TC-FY; 72100-TC-FY; 99285-25

== ENCOUNTER 2022-10-27 04:38 | Day surgery (SDC) | payer OTHER ==
[2022-10-25 08:16] VITALS: BMI 31.4
[2022-10-27] MEDS ORDERED: FAMOTIDINE 20 MG/50 ML IVPB 20 MG/50 ML MG IVPB ONE (12:00)
[2022-10-27 12:53] VITALS: TEMP 97
[2022-10-27 12:54] VITALS: RESP 20
[2022-10-27 14:50] VITALS: BP 117/76; PULSE 62
== END 2022-10-27 13:50 | disposition home or self-care (01) ==
LOC: JASU-ENDO 04:38
PROVIDERS: ATTEND Internal Medicine Gastroenterology
PROC: 0DB98ZX Excision of Duodenum, Via Natural or Artificial Opening Endoscopic, Diagnostic (ICD-10-PCS; 2022-10-27)
PROC: 0DB78ZX Excision of Stomach, Pylorus, Via Natural or Artificial Opening Endoscopic, Diagnostic (ICD-10-PCS; 2022-10-27)
PROC: 0DB38ZX Excision of Lower Esophagus, Via Natural or Artificial Opening Endoscopic, Diagnostic (ICD-10-PCS; 2022-10-27)
PROC: 0DJD8ZZ Inspection of Lower Intestinal Tract, Via Natural or Artificial Opening Endoscopic (ICD-10-PCS; principal; 2022-10-27 12:00)
DX: Z12.11 Encounter for screening for malignant neoplasm of colon (principal); K57.30 Diverticulosis of large intestine without perforation or abscess without bleeding; K21.00 Gastro-esophageal reflux disease with esophagitis, without bleeding; K44.9 Diaphragmatic hernia without obstruction or gangrene; D50.9 Iron deficiency anemia, unspecified; Z83.71 Family history of colonic polyps
CPT/HCPCS: 81025; 88305-TC; 88342-TC

== ENCOUNTER 2023-02-27 05:13 | Day surgery (SDC) | payer OTHER ==
[2023-02-22 13:27] VITALS: BMI 32.8
[2023-02-27] MEDS ORDERED: MIDAZOLAM HCL 2 MG/2 ML SINGLE DOSE VIAL ONE (07:12)
[2023-02-27] MEDS ORDERED: SUCCINYLCHOLINE CHLORIDE 200 MG/10 ML SYRINGE ONE (07:12)
[2023-02-27] MEDS ORDERED: KETOROLAC TROMETHAMINE 30 MG/1 ML VIAL ONE ×2 (07:12→07:15)
[2023-02-27] MEDS ORDERED: ceFAZolin SODIUM 1 GM VIAL ONE (07:12)
[2023-02-27] MEDS ORDERED: DEXAMETHASONE SOD PHOSPHATE 4 MG/1 ML VIAL ONE (07:15)
[2023-02-27] MEDS ORDERED: PROPOFOL 40 ML ONE (07:15)
[2023-02-27] MEDS ORDERED: ONDANSETRON 4 MG/2 ML VIAL ONE (07:15)
[2023-02-27] MEDS ORDERED: LIDOCAINE HCL/PF 2% SDV 5ML VIAL ONE (07:15)
[2023-02-27] MEDS ORDERED: IBUPROFEN 800 MG/8 ML IJ IVPB PRN (07:45)
[2023-02-27] MEDS ORDERED: ELECTROLYTE-148 SOLN 1,000 ML IV SCH (07:45)
[2023-02-27] MEDS ORDERED: ONDANSETRON 4 MG/2 ML VIAL IVPUSH PRN (07:45)
[2023-02-27] MEDS ORDERED: IBUPROFEN 600 MG TABLET (FP) PO PRN (07:45)
[2023-02-27] MEDS ORDERED: oxyCODONE HCL 5 MG TABLET PO PRN ×2 (07:45→08:58)
[2023-02-27] MEDS ORDERED: VASOPRESSIN 20 UNITS/ML VIAL IV ONE (07:54)
[2023-02-27] MEDS ORDERED: ACETAMINOPHEN INJECTION 100 ML IVPB ONE (08:05)
[2023-02-27 11:18] VITALS: RESP 20; TEMP 98.2
[2023-02-27 13:28] VITALS: BP 102/58; PULSE 70
== END 2023-02-27 13:00 | disposition home or self-care (01) ==
LOC: JASU-SURG 05:13
PROVIDERS: ATTEND Obstetrics & Gynecology
PROC: 0UB98ZZ Excision of Uterus, Via Natural or Artificial Opening Endoscopic (ICD-10-PCS; principal; 2023-02-27 07:30)
DX: D25.0 Submucous leiomyoma of uterus (principal); N92.1 Excessive and frequent menstruation with irregular cycle
CPT/HCPCS: 81025; 86850; 86900; 86901; 88305-TC; 94760

== ENCOUNTER 2024-02-27 08:47 | Emergency (ER) | payer OTHER ==
[2024-02-27 08:58] VITALS: BP 113/71; PULSE 72; RESP 20; TEMP 97.7; BMI 31.2
[2024-02-27] MEDS ORDERED: IBUPROFEN 600 MG TABLET (FP) PO ONE (09:20)
[2024-02-27] MEDS: IBUPROFEN 600 MG TABLET (FP) PO ONE (09:21)
== END 2024-02-27 09:50 | disposition home or self-care (01) ==
LOC: JERFT 08:47
DX: M77.9 Enthesopathy, unspecified (principal); M79.642 Pain in left hand; M79.89 Other specified soft tissue disorders
CPT/HCPCS: 73130-TC-LT-FY; 99283-25